=== PATIENT | male | born 1975 | race Hispanic/Latino ===

== ENCOUNTER 2019-06-11 12:51 | Outpatient (CLI) | payer BC ==
--- NOTE | 2019-06-11 13:35 | ULT ---
EXAM: US Testicular W Doppler PROVIDED CLINICAL HISTORY: Testicular pain which is intermittent and 20. Symptoms of been present for 2 months COMPARISON: None FINDINGS: The testicles demonstrate a normal sonographic appearance bilaterally without evidence of a testicula r mass. The right testicle measures 3.3 cm x 5 cm x 2.3 cm and the left testicle measures 2.6 cm x 4.9 cm x 2.5 cm. A punctate echogenic focus is seen in the midportion left testicle probably due to a small calcification The right epididymis demonstrates a normal sonographic appearance. A 0.5 cm anechoic structure is see n in the left epididymis likely due to a small epididymal cyst. Doppler evaluation of each testicle with spectral analysis and color flow evaluation demonstrates art erial and venous flow in each testicle. No hydrocele is visualized. IMPRESSION: 1. Normal appearing bilateral testicles aside from a single microlith in the left testicle. Arterial flow is documented in each testicle. 2. Small left epididymal cyst.
== END 2019-06-11 12:52 | disposition home or self-care (01) ==
LOC: SCSULT 12:51
PROVIDERS: ATTEND Family Medicine
DX: N50.819 Testicular pain, unspecified (principal); N50.3 Cyst of epididymis
CPT/HCPCS: 76870; 93976

== ENCOUNTER 2020-07-06 19:00 | Outpatient (CLI) | payer BC | END 2020-07-06 19:01 | disposition home or self-care (01) | LOC: SLEEPLAB 19:00 | PROVIDERS: ATTEND Family Medicine | DX: G47.33 Obstructive sleep apnea (adult) (pediatric) (principal); R06.83 Snoring; G47.00 Insomnia, unspecified; G47.10 Hypersomnia, unspecified; F41.8 Other specified anxiety disorders | CPT/HCPCS: 95811 ==